=== PATIENT | female | born 1985 | race Caucasian/White ===

== ENCOUNTER 2018-09-14 13:04 | Day surgery (SDC) | payer OTHER ==
[2018-09-13 18:47] VITALS: BMI 32.8
[2018-09-14] MEDS ORDERED: ROPIVACAINE HCL 0.5% 30ML VIAL ONE (14:03)
[2018-09-14] MEDS ORDERED: DEXAMETHASONE SOD PHOSPHATE/PF 10 MG/ML SDV ONE (14:04)
[2018-09-14] MEDS ORDERED: MIDAZOLAM HCL 2 MG/2 ML SINGLE DOSE VIAL ONE ×2 (14:05→14:46)
[2018-09-14] MEDS ORDERED: KETAMINE HCL 200 MG/20 ML VIAL ONE (15:11)
[2018-09-14] MEDS ORDERED: oxyCODONE HCL 5 MG TABLET PO PRN ×2 (15:19)
[2018-09-14] MEDS ORDERED: ONDANSETRON 4 MG/2 ML VIAL IVPUSH PRN (15:19)
[2018-09-14] MEDS ORDERED: ACETAMINOPHEN 325 MG TABLET (FP) PO PRN (15:19)
[2018-09-14] MEDS ORDERED: LACTATED RINGERS SOLUTION 1,000 ML IV SCH (15:30)
[2018-09-14] MEDS ORDERED: PROPOFOL 20 ML ONE (15:56)
[2018-09-14] MEDS ORDERED: ONDANSETRON 4 MG/2 ML VIAL ONE (16:26)
[2018-09-14] MEDS ORDERED: ONDANSETRON 4 MG/2 ML VIAL IVPUSH ONE (16:33)
[2018-09-14 18:29] VITALS: TEMP 98.5
[2018-09-14 18:34] VITALS: BP 126/75; PULSE 71
--- NOTE | 2018-09-15 09:58 | OP ---
DATE OF OPERATION: 09/14/2018 PREOPERATIVE DIAGNOSIS: Right distal radius (ORIF). POSTOPERATIVE DIAGNOSIS: Right distal radius (ORIF). OPERATIVE PROCEDURE: 1. Open reduction, internal fixation _Right Distal Radius fracture with internal fixation of three or more fragments. 2. Right brachioradialis tenotomy. SURGEON: Ambrose Palm MD PRINTER HELPER: FRANCISCO Pizano ANESTHESIA: Regional. COMPLICATIONS: None. ESTIMATED BLOOD LOSS: Minimal. INDICATION FOR PROCEDURE: The patient is a 33-year-old female with the above finding, indicated for operative treatment. The risks, benefits and alternatives were discussed with the patient at length and proper informed consent was obtained. DESCRIPTION OF PROCEDURE: After proper identification of the patient and the correct operative site, the patient was brought to the operating room and placed supine on the operating table with all prominences well padded. Sedation and regional anesthesia were given. Intravenous antibiotics given. The right upper extremity was prepped and draped in the usual sterile fashion. An Esmarch bandage was used to exsanguinate the right upper extremity and the tourniquet was inflated to 250 mmHg. A longitudinal incision was made over the flexor carpi radialis tendon. The incision was taken sharply through the skin with blunt and sharp dissection through the subcutaneous tissues. The flexor carpi radialis along with the contents of the carpal canal were bluntly and gently retracted in an ulnarward direction for remainder_ of the procedure. The pronator quadratus was completely ruptured and elevated off the distal radius. A highly comminuted intraarticular displaced fracture was noted. Attempted reduction was performed. However, the pull of the brachioradialis made this not possible. Therefore, a brachioradialis tenotomy was performed in subperiosteal fashion. This allowed release of the fragments and allowed for correct reduction of the fracture, which was then secured with an Acumed Acu-Ever plate with distal locking screws and proximal non-locking screws. Radiographs confirmed proper placement and sizing of all hardware as well as satisfactory reduction. The wrist was taken through range of motion and achieved full range of motion, including flexion, extension, radial deviation, ulnar deviation, pronation and supination of the forearm. The scapholunate interval and distal radioulnar joints were found to be stable. The wound was repaired in layers using 4-0 Vicryl and 4-0 Monocryl. Sterile dressings were applied. A splint was placed. The patient was reversed from anesthesia and brought to the recovery room in stable condition. She tolerated the procedure well. FRANCISCO Pizano, the assistant import manager, was integral throughout the procedure. The procedure could not have been performed without a skilled operative assistant import manager. Abbey GAONA/[id number] MTDD
== END 2018-09-14 18:30 | disposition home or self-care (01) ==
LOC: FASU 13:04
PROVIDERS: ATTEND Orthopaedic Surgery Hand Surgery
PROC: 0LN50ZZ Release Right Lower Arm and Wrist Tendon, Open Approach (ICD-10-PCS; 2018-09-14)
PROC: 0PSH04Z Reposition Right Radius with Internal Fixation Device, Open Approach (ICD-10-PCS; principal; 2018-09-14 15:01)
DX: S52.501A Unspecified fracture of the lower end of right radius, initial encounter for closed fracture (principal); X58.XXXA Exposure to other specified factors, initial encounter; Y93.9 Activity, unspecified; Y92.9 Unspecified place or not applicable
CPT/HCPCS: 25290; 25609; C1713; 73110-TC-RT-FY; 73130-TC-RT-FY; 84703; 94760

== ENCOUNTER 2018-10-06 10:25 | Day surgery (SDC) | payer OTHER ==
[2018-10-04 18:45] VITALS: BMI 32.8
--- NOTE | 2018-10-06 07:34 | OP ---
Operative Note - Note: Operative Date: 10/06/18 Pre-Operative Diagnosis: Right ACL tear Operation: Right ACL reconstruction Post-Operative Diagnosis: Same as Pre-op Surgeon: Benito Perez Yarn Worker: Sylvia Haley Anesthesia: General Operative Report Dictated: Yes
[2018-10-06] MEDS ORDERED: BUPIVACAINE LIPOSOME/PF (EXPAREL) 266 MG/20 ML VIAL ONE (11:25)
[2018-10-06] MEDS ORDERED: MIDAZOLAM HCL 2 MG/2 ML SINGLE DOSE VIAL ONE (11:25)
[2018-10-06] MEDS ORDERED: SODIUM CHLORIDE 0.9% P/F 10 ML VIAL IJ ONE (11:25)
[2018-10-06] MEDS ORDERED: ONDANSETRON 4 MG/2 ML VIAL ONE (13:27)
[2018-10-06] MEDS ORDERED: PROPOFOL 20 ML ONE ×2 (13:27→14:21)
[2018-10-06] MEDS ORDERED: DEXAMETHASONE SOD PHOSPHATE 4 MG/1 ML VIAL ONE (13:27)
[2018-10-06] MEDS ORDERED: ceFAZolin SODIUM 1 GM VIAL ONE (13:37)
[2018-10-06] MEDS ORDERED: TRANEXAMIC ACID 1000 MG/10 ML VIAL ONE (13:37)
[2018-10-06] MEDS ORDERED: VANCOMYCIN 1,000 MG VIAL (RESTRICTED TO ID ONLY) ONE (13:41)
[2018-10-06] MEDS ORDERED: ePHEDrine SULFATE 50 MG/1 ML AMPULE ONE (14:01)
[2018-10-06] MEDS ORDERED: EPINEPHrine 1:1,000 1 MG/1 ML - 30ML VIAL (INJECTION) ONE (14:51)
[2018-10-06] MEDS ORDERED: ONDANSETRON 4 MG/2 ML VIAL IVPUSH PRN (16:15)
[2018-10-06] MEDS ORDERED: LACTATED RINGERS SOLUTION 1,000 ML IV SCH (16:15)
[2018-10-06] MEDS ORDERED: oxyCODONE HCL 5 MG TABLET PO PRN ×2 (16:15)
[2018-10-06 17:03] VITALS: TEMP 97.8
[2018-10-06] MEDS ORDERED: oxyCODONE HCL 5 MG TABLET ONE (17:09)
[2018-10-06 17:33] VITALS: BP 128/74; PULSE 81
--- NOTE | 2018-10-07 10:42 | OP ---
DATE OF OPERATION: 10/06/2018 PREOPERATIVE DIAGNOSIS: Right knee anterior cruciate ligament rupture, bucket handle medial meniscal tear. POSTOPERATIVE DIAGNOSIS: Right knee anterior cruciate ligament rupture, bucket handle medial meniscal tear and lateral meniscus tear. PROCEDURE PERFORMED: Right knee arthroscopy with anterior cruciate ligament reconstruction utilizing allograft, medial meniscal repair. SURGEON: Benito Perez MD CALCULUS PROFESSOR: FRANCISCO Morales. Ms. Haley was able to help provide limb positioning, traction, assist in driving the camera, as well as the passage of sutures, assist in graft preparation, as well as fixation of the meniscus. ANESTHESIA: Regional plus general. CONDITION: Postoperative condition stable. COMPLICATIONS: None. IMPLANTS: [employer] TightRopes x2, [employer] FasT-Fix 360 x3. INDICATIONS: This is a pleasant 33-year-old who suffered a fall and injured both her knee and her wrist. Her wrist has already been surgically repaired and now she required operative care of her knee. We did discuss treatment options for her knee, including nonoperative care, which would have a very difficult time with the bucket handle medial meniscus, as well as operative care with meniscal repair as well as concurrent ACL surgery. It was not recommended to just repair the meniscus as persistent instability would make the repair likely to fail. I reviewed surgical risks in detail including bleeding, infection, neurovascular injury, need for further surgery, postoperative pain and stiffness, failure of the ACL graft or failure of the meniscal repair. I reviewed medical risks such as heart attack, stroke, DVT, PE and . We discussed the use of perioperative antibiotics and DVT prophylaxis. I addressed all of the patient's questions and concerns. She voiced understanding and elected to proceed. DESCRIPTION OF PROCEDURE: The patient was brought to the operating room after the administration of a regional block in the preoperative holding area. She was given a general anesthetic. The right lower extremity was then prepped and draped in the usual sterile fashion. A preoperative dose of antibiotics was given and the usual time-out procedure was performed. The knee was examined, demonstrating full range of motion, mild effusion, positive Jason. No collateral instability. Following draping in the usual sterile fashion, the portal sites were marked out. The lateral portal was established with an 11 blade. The arthroscope was passed into the knee. Examination of the patellofemoral joint demonstrated high-grade partial thickness chondral loss along a large portion of the patellar undersurface. The trochlea had some wear. The arthroscope was passed into the notch. Here, the ACL fibers were noted to be intact. The PCL was seen to be frayed but appeared intact. The meniscus was noted to be grossly into the notch. A medial portal was established under spinal needle localization. Utilizing the probe, the meniscus was manipulated back into its anatomic position. Based on the alignment, it was felt that this was a repairable tear. The edge of the capsule was rasped. The meniscus was then fixed in place using FasT-Fix 360 devices x3 in horizontal mattress fashion. The meniscus was then probed and found to be stable. Attention was now turned to the notch. Here, it appears that a previous notchplasty had been performed. However, it looks like it also was filled with callus. Electrocautery was used to remove the soft tissue from the lateral wall of the notch. However, a large bony prominence was noted. Electrocautery was used to free up the soft tissue from the tibial . Utilizing a bur as well as a shaver, the lateral wall of the notch was both enlarged and debrided in order to gain access to the posterior aspect of the notch where the [place] ACL attachment was. It should be noted that a previous screw was identified and it was in the midportion of the notch. It was not felt to be an impediment to proper graft placement. The femoral guide was inserted through the lateral portal and under direct visualization placed at the anatomic origin of the ACL. A small incision was made laterally in the thigh and blunt spreading was carried down to the bone. The trocar was inserted down to the bone and a FlipCutter was drilled in. FlipCutter placement was verified. Then, an 11- x 25-mm socket was created here. The FlipCutter was removed and a passing suture was placed. Attention was then turned to the tibial side. Here, the tibial guide was inserted at the anatomic footprint. A small incision was made in the anterior aspect of the tibia. Blunt spreading was carried down to the tibial cortex. Trocar was inserted. Here, a 40-mm tunnel was drilled and then a socket was created here as well. A passing suture was placed. The sutures were now retrieved out the lateral portal, the lateral portal having been enlarged to accommodate the graft. The graft and TightRope had been prepared on the back table into a . The TightRope was passed under direct visualization through the femoral socket and seemed to sit firmly on the cortex. The TightRope was now toggled, drawing the femoral side into the socket. The tibial sutures were then passed, drawing the tibial side in. A button was loaded on. The knee was cycled. The tibial button was now tightened into place as well. It should be noted that a GraftLink technique was used. After tightening the tibial TightRope, the graft sutures were tied over the button as well as the GraftLink internal brace sutures. At this point, a locking maneuver was performed and the knee was found to be stable. The graft had good tension upon probing. Excess sutures were cut and tied. The wounds were now closed with 3-0 nylon. Sterile dressings were placed. The patient was transferred to the recovery room in stable condition. Abbey CHAVEZ/[id number]
== END 2018-10-06 18:20 | disposition home or self-care (01) ==
LOC: FASU 10:25
PROVIDERS: ATTEND Orthopaedic Surgery Sports Medicine
PROC: 0MSN4ZZ Reposition Right Knee Bursa and Ligament, Percutaneous Endoscopic Approach (ICD-10-PCS; principal; 2018-10-06 13:55)
PROC: 0SQC4ZZ Repair Right Knee Joint, Percutaneous Endoscopic Approach (ICD-10-PCS; 2018-10-06 13:55)
DX: S83.511A Sprain of anterior cruciate ligament of right knee, initial encounter (principal); S83.241A Other tear of medial meniscus, current injury, right knee, initial encounter; W19.XXXA Unspecified fall, initial encounter; Y93.9 Activity, unspecified; Y92.9 Unspecified place or not applicable
CPT/HCPCS: 29882; 29888; C1713; 84703; 94760